=== PATIENT | female | born 1950 | race Caucasian/White ===

== ENCOUNTER 2017-01-14 12:47 | Outpatient (CLI) | payer OTHER ==
[~2017-01-14 12:47] MED LIST: IPRATROPIUM BR0.02 % IN; IRON325 MG PO; NORCO1 TA1 PO; PREMARIN0.3 MG PO
--- NOTE | 2017-01-14 14:03 | DIAGNOSTIC IMAGING REPORT ---
PROCEDURE: CT ABDOMEN/PELVIS W/O CONTRAST INDICATION: LT FLANK PAIN TECHNIQUE: Noncontrast axial images were obtained of the entire abdomen and pelvis with sagittal and coronal reformations. COMPARISON: CT abdomen/pelvis 01/23/2010. FINDINGS: ABDOMEN: Lung base are clear. Normal heart size. There is a 2.8 cm right hepatic lobe cyst with an adjacent 8 mm cyst. There are several sub 5 mm hypodense hepatic lesions suggestive of additional cysts. Contracted gallbladder. Two stable dystrophic calcifications in the tail of the pancreas. Spleen, adrenal glands and kidneys are unremarkable. No evidence of urinary calculi or hydronephrosis. Mild atherosclerosis of the aorta. Large amount of stool throughout the large bowel. PELVIS: Appendix not visualized. Normal uterus and bladder. 2.8 cm right ovarian cyst versus bowel. No free fluid or inflammatory changes. Mild dextroscoliosis. Severe L4-5 and L5-S1 degenerative changes. IMPRESSION: 1. Normal urinary system 2. Hepatic cysts 3. Obstipation 4. 2.8 cm right ovarian cyst versus bowel. Recommend pelvic ultrasound. 5. Results discussed with WYATT Wallace All CT scans at this facility use dose modulation, iterative reconstruction, and/or weight-based dosing when appropriate to reduce radiation dose to as low as reasonably achievable.
== END 2017-01-14 23:00 ==
LOC: CT SRH 12:47
DX: K76.89 Other specified diseases of liver (principal); K59.00 Constipation, unspecified